=== PATIENT | female | born 1955 | race Two or more races ===

== ENCOUNTER → 2024-11-15 | Emergency (ER) | payer OTHER ==
[~2024-11-15] MED LIST: CALCIO; COZAAR50 MG PO; METHOTREXATE2.5 MG; SYNJARDY 12.5-1 EAC1 PO; SYNTHROID125 MCG PO
== END | disposition left against medical advice (07) ==
LOC: ER 09:57
DX: Z53.21 Procedure and treatment not carried out due to patient leaving prior to being seen by health care provider (principal)

== ENCOUNTER 2024-11-23 06:00 | Day surgery (SDC) | payer OTHER ==
[2024-11-15 12:20] VITALS: BP 127/81
[~2024-11-23] VITALS: Ht 160 cm; Wt 77.1 kg
[2024-11-23] MEDS ORDERED: CEFAZOLIN SODIUM 1,000 MG VIAL ONE (07:44)
[2024-11-23] MEDS ORDERED: KETOROLAC TROMETHAMINE 30 MG VIAL ONE ×2 (09:40→09:42)
[2024-11-23] MEDS ORDERED: BUPIVACAINE HCL/MPF 0.5% 30ML VIAL ONE (09:41)
[2024-11-23] MEDS ORDERED: LIDOCAINE HCL 1%/EPINEPHRINE 20ML VIAL IJ ONE (09:41)
== END 2024-11-23 13:55 | disposition home or self-care (01) ==
LOC: CIR.AMB 06:00
PROVIDERS: ATTEND Orthopaedic Surgery
DX: M75.122 Complete rotator cuff tear or rupture of left shoulder, not specified as traumatic (principal); M75.22 Bicipital tendinitis, left shoulder; M24.112 Other articular cartilage disorders, left shoulder; M25.312 Other instability, left shoulder